=== PATIENT | female | born 1990 | race Caucasian/White ===

== ENCOUNTER 2016-11-20 00:10 | Inpatient (IN) | payer MEDICAID ==
[2016-11-20] VITALS (36 sets, daily range): BP systolic 93–136; BP diastolic 43–98; PULSE 16–130; RESP 16–20; TEMP 98–100; O2SAT 97–100
[~2016-11-20] VITALS: Ht 160 cm; Wt 76.2 kg
[2016-11-20] MEDS ORDERED: PRENTAB44 (00:52)
[2016-11-20] MEDS ORDERED: FERR325C PO (00:52)
[2016-11-20] MEDS ORDERED: LACTATED RINGER'S 1000 ML INJ 1,000 ML IV PRN (00:53)
--- NOTE | 2016-11-20 00:53 | PD ---
HPI Chief Complaint Contractions Date Seen: Nov 20, 2016 Time Seen: 00:49 Travel History International Travel<30 Days: No Contact w/Intl Traveler<30Days: No Known Affected Area: No History of Present Illness HPI 26-year-old who is at 40 weeks and 1 day today complains of contractions that began about 7:30 this evening have progressively increased in intensity. Patient is group B strep positive. She denies any complications during this and has experienced 1 spontaneous vaginal delivery in the past. Weeks Gestation: 40 Para: 1 : 2 History Past Medical History Medical History: Denies Significant Hx Obstetric History Obstetric History Spontaneous vaginal delivery Past Surgical History Surgical History: No Previous Surgery Family History Family History: Negative Social History Alcohol Use: No Tobacco Use: No Substance Abuse: No Review of Systems Except as stated in HPI: all other systems reviewed are Neg Physical Exam Narrative GENERAL: Well-nourished, well-developed patient. SKIN: Warm and dry. HEAD: Normocephalic and atraumatic. EYES: No scleral icterus. No injection or drainage. ENT: No nasal drainage noted. Mucous membranes pink. Airway patent. NECK: Supple, trachea midline. No JVD. CARDIOVASCULAR: Regular rate and rhythm without murmurs, gallops, or rubs. RESPIRATORY: Breath sounds equal bilaterally. No accessory muscle use. ABDOMEN/GI: Abdomen soft, non-tender, bowel sounds present, no rebound, no guarding Gravid to [38-] weeks size Fundal Height: [-] GENITOURINARY: External Genitalia: intact and normal in appearance BUS glands: [-Normal] Cervix: [Mid position-] Dilatation: [4-] Effacement: [-80] Station: [--2] Presentation: [Vertex-] Membranes: [intact ] Uterine Contractions: [-Every 5] FHT's: Category: [1-] Baseline: [-140] Reactive: [Moderate-] Variability: [-Moderate] Decels: [-Absent] EXTREMITIES: No cyanosis or edema. BACK: Nontender without obvious deformity. No CVA tenderness. NEUROLOGICAL: Awake and alert. Motor and sensory grossly within normal limits. Five out of 5 muscle strength in all muscle groups. Normal speech. Data Data Vital Signs Reviewed: Yes Group B Strep: Positive [facility] Medical Record Reviewed: No Plan 26-year-old who is at 40 weeks gestation with positive group B strep Active labor with cervix of 4 cm, examine office 1 week ago her cervix was a centimeter. Penicillin prophylaxis Diagnosis Diagnosis: Primary Impression: Irregular uterine contractions Additional Impressions: Mother positive for group B Streptococcus colonization Intact amniotic membranes during in third trimester 40 weeks gestation of Yocasta Al MD Nov 20, 2016 00:53
[2016-11-20] MEDS ORDERED: MINERAL OIL 10 ML VIAL TOPICAL PRN (01:00)
[2016-11-20] MEDS ORDERED: CITRIC ACID-SODIUM CITRATE LIQ 30 ML UDC PO SCH (01:00)
[2016-11-20] MEDS ORDERED: LIDOCAINE HCL 1% 50 ML VIAL I-DERMAL PRN (01:00)
[2016-11-20] MEDS ORDERED: SODIUM CHLORID 0.9% 500 ML INJ 500 ML IV PRN (01:00)
[2016-11-20] MEDS ORDERED: OXYTOCIN 30 UNITS-500ML PREMIX 500 ML IV ONE (01:00)
[2016-11-20] MEDS ORDERED: PENICILLIN G POTASSIUM INJ 5,000,000 UNITS in SODIUM CHLORIDE 0.9% INJ 100 ML IV ONE (01:00)
[2016-11-20] MEDS ORDERED: LIDOCAINE HCL 1% 50 ML VIAL INFIL PRN (01:00)
[2016-11-20] MEDS ORDERED: ONDANSETRON HCL 4 MG/2 ML VIAL IV PRN (01:00)
[2016-11-20] MEDS ORDERED: SODIUM CHLOR 0.9% 1000 ML INJ 1,000 ML IV PRN (01:13)
[2016-11-20] MEDS: LACTATED RINGER'S 1000 ML INJ 1,000 ML IV SCH ×2 (01:16→05:43)
[2016-11-20 01:44] LABS: AUTOMATED NEUTROPHIL # 9.6 TH/MM3 (1.8-7.7); BASOPHIL % 0.3 % (0.0-2.0); EOSINOPHIL # 0.1 TH/MM3 (0-0.4); EOSINOPHIL % 0.4 % (0.0-4.0); HEMATOCRIT 34.7 % (35.0-46.0); HEMO FLAGS DIFF FINAL; LYMPH % 17.9 % (9.0-44.0); LYMPHOCYTE # 2.3 TH/MM3 (1.0-4.8); MEAN CELL VOLUME 82.7 FL (80.0-100.0); MEAN CORPUSCULAR HEMOGLOBIN 27.1 PG (27.0-34.0); MEAN CORPUSCULAR HGB CONC 32.8 % (32.0-36.0); MONO % 7.7 % (0.0-8.0); NEUT % 73.7 % (16.0-70.0); PLATELET COUNT 172 TH/MM3 (150-450); RED CELL DISTRIBUTION WIDTH 17.2 % (11.6-17.2)
[2016-11-20] MEDS ORDERED: PENICILLIN G POTASSIUM INJ 2,500,000 UNITS in SODIUM CHLORIDE 0.9% INJ 100 ML IV SCH (05:00)
[2016-11-20] MEDS ORDERED: fentaNYL 2MCG-BUPIV 0.125% INJ 100 ML ONE (05:29)
[2016-11-20] MEDS ORDERED: ePHEDrine/NS 25 MG/5 ML SYR IV PRN (06:15)
[2016-11-20] MEDS ORDERED: DO NOT ADMINISTER ANTICOAGULANTS PRN (06:15)
[2016-11-20] MEDS ORDERED: NO SYSTEM NARCOTICS PRN (06:15)
[2016-11-20] MEDS ORDERED: fentaNYL 2MCG-BUPIV 0.125% 100 ML EPIDURAL SCH (06:15)
--- NOTE | 2016-11-20 08:25 | PD.LABORPN ---
Subjective Subjective comfortable with epidural no urge to push yet bagi intact Objective Vital Signs Vital Signs Date Time Temp Pulse Resp B/P (MAP) Pulse Ox O2 Delivery O2 Flow Rate FiO2 11/20/16 08:00 16 11/20/16 08:00 78 112/64 (80) 11/20/16 07:31 67 109/49 (69) 11/20/16 07:26 16 11/20/16 07:01 61 121/59 (79) 11/20/16 06:15 68 99/54 (69) 11/20/16 06:10 74 110/50 (70) 11/20/16 06:05 73 114/51 (72) 11/20/16 06:05 73 100 11/20/16 06:01 79 126/63 (84) 11/20/16 06:00 88 100 11/20/16 05:55 82 124/76 (92) 11/20/16 05:55 90 99 11/20/16 05:50 94 133/85 (101) 11/20/16 05:50 74 100 11/20/16 05:45 82 11/20/16 05:45 79 130/65 (86) 97 11/20/16 05:41 130 124/69 (87) 11/20/16 05:40 99 11/20/16 05:40 76 11/20/16 05:37 78 120/69 (86) 11/20/16 04:12 72 123/80 (94) 11/20/16 04:11 18 11/20/16 04:10 98.8 11/20/16 02:52 76 121/69 (86) 11/20/16 02:51 20 Objective 9/90/-1 arom clear well applied pelvic clinically adequate and proven EFw 7 1/2 pounds OA strip category one Weeks Gestation: 40 Gest Age Assessed Date: Nov 20, 2016 Gest Age Assessed Time: 08:00 Pt started active labor?: Yes Active labor start date: Nov 20, 2016 Active labor start time: 01:00 Medical induction of labor?: No Artificial rupture of membrane: Yes Artificial ROM date: Nov 20, 2016 Artifical ROM time: 08:00 Assessment/Plan Assessment and Plan anticipate Amanda Manuel MD Nov 20, 2016 08:25
[2016-11-20] MEDS ORDERED: ONDANSETRON ODT 4 MG TAB PO PRN (10:00)
[2016-11-20] MEDS ORDERED: ZOLPIDEM TARTRATE 5 MG TAB PO PRN (10:00)
[2016-11-20] MEDS ORDERED: SODIUM CHLORIDE 0.9% FLUSH 10 ML FLUSH IV FLUSH PRN (10:00)
[2016-11-20] MEDS ORDERED: WITCH HAZEL 50%/GLYCERIN 12.5% 40 PAD JAR TOPICAL PRN (10:00)
[2016-11-20] MEDS ORDERED: DOCUSATE SODIUM 50 MG/SENNA 8.6 MG TAB PO PRN (10:00)
[2016-11-20] MEDS ORDERED: ALUMINUM/MAGNESIUM/SIMETH 30 ML CUP PO PRN (10:00)
[2016-11-20] MEDS ORDERED: BENZOCAINE 20% TOPICAL SPRAY 60 ML CAN TOPICAL PRN (10:00)
[2016-11-20] MEDS ORDERED: OXYTOCIN 30 UNITS-500ML PREMIX 500 ML IV SCH (10:00)
--- NOTE | 2016-11-20 10:00 | PD.OB.DELI ---
Weeks gestation: 40 Gest age assessed date: Nov 20, 2016 Gest age assessed time: 08:00 Pt started active labor?: Yes Active labor start date: Nov 20, 2016 Active labor start time: 01:00 Medical induction of labor?: No Artificial rupture of membrane: Yes Artificial ROM date: Nov 20, 2016 Artifical ROM time: 08:00 Anesthesia: Epidural Episiotomy: None Vaginal Delivery: Normal Presentation: Occiput anterior Nuchal Cord: None Delayed cord clamping (45 sec): Yes Infant: Male Delivery date: Nov 20, 2016 Delivery time: 10:00 One Minute : 8 Five Minute : 9 Weight: 8 Placenta: Spontaneous delivery Laceration: No lacerations Estimated blood loss: less than average Additional Information two or three contractions with vacuum to bring baby down after manual rotation from ROP to TRISTEN pushed and crowned on her own Amanda Lindsey MD Nov 20, 2016 10:00
[2016-11-20] MEDS ORDERED: DIPHTH/TETANUS/ACEL PERTUSSIS (BOOSTER) 0.5 ML VIAL/PFS IM ONE (16:00)
[2016-11-20] MEDS ORDERED: MEASLES, MUMPS, RUBELLA VACCINE 0.5 ML VIAL SQ ONE (16:00)
[2016-11-20] MEDS: IBUPROFEN 600 MG TAB PO PRN (18:28)
[2016-11-20] MEDS: ACETAMINOPHEN 325 MG TAB PO PRN (18:29)
[2016-11-20] MEDS ORDERED: SODIUM CHLORIDE 0.9% FLUSH 10 ML FLUSH IV FLUSH SCH (21:00)
[2016-11-21] MEDS: IBUPROFEN 600 MG TAB PO PRN ×4 (04:29→23:40)
[2016-11-21] MEDS: ACETAMINOPHEN 325 MG TAB PO PRN ×3 (04:29→17:46)
[2016-11-21 08:00] VITALS: BP 112/80; PULSE 57; RESP 17; TEMP 98.1
--- NOTE | 2016-11-21 09:36 | HHI.OB ---
Subjective Post Day: 1 Remarks PPD#1; , GBS +; doing well Objective Vitals/I&O Vital Signs Date Time Temp Pulse Resp B/P (MAP) Pulse Ox O2 Delivery O2 Flow Rate FiO2 11/21/16 08:00 98.1 57 17 112/80 (91) 11/20/16 19:10 69 18 117/56 (76) 11/20/16 19:10 98.4 11/20/16 15:30 98.0 86 18 11/20/16 15:30 109/58 (75) 11/20/16 12:50 98.6 81 18 126/63 (84) 11/20/16 11:35 16 11/20/16 11:35 100.0 11/20/16 11:23 95 132/71 (91) 11/20/16 11:20 16 11/20/16 11:16 77 115/72 (86) 11/20/16 11:05 16 11/20/16 11:00 94 127/58 (81) 11/20/16 10:51 95 93/43 (60) 11/20/16 10:50 16 16 11/20/16 10:46 133/98 (110) 11/20/16 10:35 16 11/20/16 10:29 89 117/64 (81) 11/20/16 10:28 99.1 16 11/20/16 10:00 80 136/74 (94) Objective Remarks GENERAL: Well-nourished, well-developed patient. CARDIOVASCULAR: Regular rate and rhythm without murmurs, gallops, or rubs. RESPIRATORY: Breath sounds equal bilaterally. No accessory muscle use. ABDOMEN/GI: Abdomen soft, non-tender. Fundus: Firm, non-tender at umbilicus. GENITOURINARY: Light to moderate bleeding. EXTREMITIES: No cyanosis or edema, non-tender, without signs of DVT. Medications and IVs Current Medications Medications (Trade) Dose Ordered Sig/Elise Route Start Time Stop Time Status Last Admin Lactated Ringer's 1,000 ml @ 125 mls/hr Q8H IV 11/20/16 00:53 11/20/16 05:43 Lactated Ringer's 1,000 ml @ 3,000 mls/hr Q20M PRN IV 11/20/16 00:53 Sodium Chloride 500 ml @ 1,000 mls/hr ONCE PRN IV 11/20/16 01:00 Sodium Chloride 1,000 ml @ 100 mls/hr Q10H PRN IV 11/20/16 01:13 (Xylocaine 1% Inj (50 ml)) 0.1 ml UNSCH X1 PRN I-DERMAL 11/20/16 01:00 11/23/16 00:59 (Bicitra Liq) 30 ml HE[employer] C[employer] AIDE PO 11/20/16 01:00 11/24/16 00:59 (fentaNYL INJ) 50 mcg Q1H PRN IV PUSH 11/20/16 01:00 (fentaNYL INJ) 100 mcg Q1H PRN IV PUSH 11/20/16 01:00 Penicillin G Potassium [id number] units/Sodium Chloride 100 ml @ 200 mls/hr Q4H IV 11/20/16 05:00 11/20/16 05:35 (Xylocaine 1% Inj (50 ml)) 10 ml UNSCH X1 PRN INFIL 11/20/16 01:00 11/22/16 00:59 (Muri-Lube Oil) 10 ml UNSCH PRN TOPICAL 11/20/16 01:00 Fentanyl/ Bupivacaine HCl 100 ml @ 0 mls/hr TITRATE EPIDURAL 11/20/16 06:15 11/20/16 06:43 (NS Flush) 2 ml BID IV FLUSH 11/20/16 21:00 (NS Flush) 2 ml UNSCH PRN IV FLUSH 11/20/16 10:00 (Tylenol) 650 mg Q4H PRN PO 11/20/16 10:00 11/21/16 04:29 (Motrin) 600 mg Q6H PRN PO 11/20/16 10:00 11/21/16 04:29 (Americaine 20% Top Spr) 1 spray Q4H PRN TOPICAL 11/20/16 10:00 (Tucks Pads) 1 applic QID PRN TOPICAL 11/20/16 10:00 (Charlotte-Colace) 2 tab Q12H PRN PO 11/20/16 10:00 (Ambien) 5 mg HS PRN PO 11/20/16 10:00 (Mag-Al Plus Susp Liq) 15 ml Q8H PRN PO 11/20/16 10:00 (Zofran Odt) 4 mg Q6H PRN PO 11/20/16 10:00 Assessment/Plan Assessment and Plan PPD#1, stable, discussed discharge home tomorrow due to +GBS Discharge Planning Routine, thur. Attending Attestation seen by Avel Landon MD Nov 21, 2016 09:36
--- NOTE | 2016-11-21 09:38 | HHI.DS ---
Admission Date Nov 20, 2016 at 00:56 Admitting Diagnosis Diagnosis: Delivery Date: Nov 20, 2016 Vaginal Delivery: Normal Infant: Male Brief History 26-year-old who is at 40 weeks and 1 day today complains of contractions that began about 7:30 this evening have progressively increased in intensity. Patient is group B strep positive. She denies any complications during this and has experienced 1 spontaneous vaginal delivery in the past. Pt Condition on Discharge: Good Discharge Disposition: Discharge Home Discharge Instructions Diet Instructions: As Tolerated, No Restrictions Activities You Can Perform: Shower Only-No Bath Activities to Avoid: Driving for 24 hrs, Prolonged Standing, Strenuous Activity , Sexual Activity Avel Ramey MD Nov 21, 2016 09:38
[2016-11-21 20:50] VITALS: BP 116/75; PULSE 72; RESP 18; TEMP 98.2
[2016-11-22] MEDS: IBUPROFEN 600 MG TAB PO PRN (05:10)
[2016-11-22 08:30] VITALS: BP 102/58; PULSE 60; RESP 16; TEMP 98.6
--- NOTE | 2016-11-22 08:45 | HHI.OB ---
Subjective Post Day: 2 Remarks doing well. no concerns Objective Vitals/I&O Vital Signs Date Time Temp Pulse Resp B/P (MAP) Pulse Ox O2 Delivery O2 Flow Rate FiO2 11/21/16 20:50 98.2 72 18 116/75 (89) Objective Remarks GENERAL: Well-nourished, well-developed patient. CARDIOVASCULAR: Regular rate and rhythm without murmurs, gallops, or rubs. RESPIRATORY: Breath sounds equal bilaterally. No accessory muscle use. ABDOMEN/GI: Abdomen soft, non-tender. Fundus: Firm, non-tender at umbilicus. GENITOURINARY: Light to moderate bleeding. EXTREMITIES: No cyanosis or edema, non-tender, without signs of DVT. Medications and IVs Current Medications Medications (Trade) Dose Ordered Sig/Elise Route Start Time Stop Time Status Last Admin Lactated Ringer's 1,000 ml @ 125 mls/hr Q8H IV 11/20/16 00:53 11/20/16 05:43 Lactated Ringer's 1,000 ml @ 3,000 mls/hr Q20M PRN IV 11/20/16 00:53 Sodium Chloride 500 ml @ 1,000 mls/hr ONCE PRN IV 11/20/16 01:00 Sodium Chloride 1,000 ml @ 100 mls/hr Q10H PRN IV 11/20/16 01:13 (Xylocaine 1% Inj (50 ml)) 0.1 ml UNSCH X1 PRN I-DERMAL 11/20/16 01:00 11/23/16 00:59 (Bicitra Liq) 30 ml T[employer] OPERATOR PO 11/20/16 01:00 11/24/16 00:59 (fentaNYL INJ) 50 mcg Q1H PRN IV PUSH 11/20/16 01:00 (fentaNYL INJ) 100 mcg Q1H PRN IV PUSH 11/20/16 01:00 Penicillin G Potassium [id number] units/Sodium Chloride 100 ml @ 200 mls/hr Q4H IV 11/20/16 05:00 11/20/16 05:35 (Muri-Lube Oil) 10 ml UNSCH PRN TOPICAL 11/20/16 01:00 Fentanyl/ Bupivacaine HCl 100 ml @ 0 mls/hr TITRATE EPIDURAL 11/20/16 06:15 11/20/16 06:43 (NS Flush) 2 ml BID IV FLUSH 11/20/16 21:00 (NS Flush) 2 ml UNSCH PRN IV FLUSH 11/20/16 10:00 (Tylenol) 650 mg Q4H PRN PO 11/20/16 10:00 11/21/16 17:46 (Motrin) 600 mg Q6H PRN PO 11/20/16 10:00 11/22/16 05:10 (Americaine 20% Top Spr) 1 spray Q4H PRN TOPICAL 11/20/16 10:00 (Tucks Pads) 1 applic QID PRN TOPICAL 11/20/16 10:00 (Charlotte-Colace) 2 tab Q12H PRN PO 11/20/16 10:00 (Ambien) 5 mg HS PRN PO 11/20/16 10:00 (Mag-Al Plus Susp Liq) 15 ml Q8H PRN PO 11/20/16 10:00 (Zofran Odt) 4 mg Q6H PRN PO 11/20/16 10:00 Assessment/Plan Assessment and Plan PPD#2, stable, discussed discharge home tomorrow due to +GBS Discharge Planning Routine, melo. Lizette Hernandez MD Nov 22, 2016 08:45
== END 2016-11-22 16:31 | disposition home or self-care (01) | DRG 775 ==
LOC: HOBED 00:10 → H2EA 00:56 → H1EA 12:45
PROVIDERS: ADMIT Obstetrics & Gynecology; ATTEND Obstetrics & Gynecology
PROC: 10D07Z6 Extraction of Products of Conception, Vacuum, Via Natural or Artificial Opening (ICD-10-PCS; principal; 2016-11-20)
PROC: 10907ZC Drainage of Amniotic Fluid, Therapeutic from Products of Conception, Via Natural or Artificial Opening (ICD-10-PCS; 2016-11-20)
DX: O99.824 Streptococcus B carrier state complicating childbirth (principal); Z37.0 Single live birth; Z3A.40 40 weeks gestation of pregnancy
CPT/HCPCS: 85025; 86592; 86900; 86901; 90715; J2540; J7120